=== PATIENT | female | born 1960 | race Two or more races ===

== ENCOUNTER 2021-05-28 15:01 | Inpatient (IN) ==
[2021-05-28] MEDS ORDERED: SODIUM CHLORIDE 0.9% 1,000 ML IV STA (19:24)
[2021-05-28 20:12] LABS: Basophils # 0.1 10*3/uL (0.0-0.2); Basophils % 0.3 % (0.0-0.8); Eosinophils % 0.2 % (0.00-10.9); Hematocrit 38.1 VOL% (35.7-47.0); Hemoglobin 13.1 GM/DL (12.0-16.0); Immature Granulocytes % 5.5 %; Immature Granulocytes Absolute 0.95 #; Lymphocytes # 1.1 10*3/uL (1.4-4.0); Lymphocytes % 6.2 % (21.3-54.2); Mean Corpuscular HGB Conc 34.4 GM/DL (32-36); Mean Corpuscular Volume 87.6 FL (87-102); Mean Platelet Volume 9.5 FL (9.6-12.0); Monocytes % 2.1 % (1.7-12.7); NRBC # 0.03 10*3/uL; Neutrophils % 85.7 % (38.7-73.9); Platelet Count 229 T/CUMM (130-400); Red Blood Count 4.35 MC/CUMM (3.8-5.5); Red Cell Distribution Width 12.4 % (9.3-17.3); White Blood Count 17.2 T/CUMM (4-12)
[2021-05-28] MEDS ORDERED: AZITHROMYCIN INJ 500 MG in SODIUM CHLORIDE 0.9% 250 ML IV STA (20:15)
[2021-05-28 20:17] LABS: ABG Base Excess 2.6 MMOL/L (-2.5-2.5); ABG HCO3 26.4 MMOL/L (20-26); ABG Oxygen Saturation 88.8 % (95-100); ABG PCO2 35.7 MM HG (35-48); ABG PH 7.467 (7.35-7.45); ABG PO2 58.9 MM HG (80-95); ABG TCO2 21.1 MMOL/L (23-27); Allen Test Positive
[2021-05-28 20:28] LABS: Bacteria,Urine Occasional /HPF (Few); Bilirubin,Urine Negative (Negative); Blood, Urine Small mg/dL (Negative); Glucose,Urine (UA) >=500 mg/dL (Negative); Hyaline Casts,Urine 9 /LPF (0-3); Ketones,Urine 20 mg/dL (Negative); Mucus,Urine Occasional /LPF (Occasional); Nitrite,Urine Negative (Negative); Protein,Urine 100 MG/DL; Squamous Epithelial Cell,Urine Occasional /HPF (0-10); Urine Appearance Slightly Hazy (Clear); Urine Color Yellow (Yellow); Urine Specific Gravity 1.024 (1.001-1.035)
[2021-05-28 20:36] LABS: Albumin 2.4 G/DL (3.4-5.0); Bilirubin,Total 1.4 MG/DL (0.20-1.00); Calcium 8.9 MG/DL (8.5-10.1); Osmolality,Calculated 277.8 MOS/KG (273-304); Potassium 3.1 MMOL/L (3.5-5.1); Total Protein 7.7 G/DL (6.4-8.2)
[2021-05-28 20:42] LABS: Lymphocytes 4 % (20-55); Segmented Neutrophils 94 % (50-85); Total Cells Counted 100
[2021-05-28 20:43] LABS: Platelet Estimate Adequate
[2021-05-28] MEDS ORDERED: MELATONIN 3 MG TABLET PO PRN (21:36)
[2021-05-28] MEDS ORDERED: DEXAMETHASONE 10 MG/1 ML VIAL IV STA (21:38)
[2021-05-28] MEDS ORDERED: ENOXAPARIN 30 MG/0.3 ML SYRINGE SUBCUT SCH (22:00)
[2021-05-28] MEDS: ASCORBIC ACID 500 MG TABLET PO SCH (23:11)
[2021-05-28] MEDS: FAMOTIDINE 20 MG TABLET PO SCH (23:11)
[2021-05-29] MEDS ORDERED: ACETAMINOPHEN 325 MG TABLET PO PRN (00:20)
[2021-05-29] MEDS ORDERED: DOCUSATE SODIUM 100 MG CAPSULE PO PRN (00:20)
[2021-05-29] MEDS ORDERED: DEXTROSE 50% 25 GM/50 ML VIAL IV PRN (00:20)
[2021-05-29] MEDS ORDERED: hydrALAZINE 20 MG/1 ML VIAL IV PRN (00:20)
[2021-05-29] MEDS ORDERED: GLUCAGON 1 MG VIAL IM PRN (00:20)
[2021-05-29] MEDS ORDERED: ONDANSETRON 4 MG/2 ML VIAL IV PRN (00:20)
[2021-05-29] MEDS ORDERED: MAGNESIUM SULF RIDER 4 GM/100 ML PREMIX IV PRN (00:23)
[2021-05-29] MEDS ORDERED: MAGNESIUM SULF RIDER 2 GM/50 ML PREMIX IV PRN (00:23)
[2021-05-29] MEDS ORDERED: POTASSIUM CHLORIDE 20 MEQ TABLET PO PRN (00:23)
[2021-05-29] MEDS ORDERED: SODIUM CHLORIDE 0.9% 1,000 ML IV SCH (00:30)
[2021-05-29] MEDS: cefTRIAXone 1,000 MG in SODIUM CHLORIDE 0.9% 100 ML IV SCH ×2 (02:08→12:37)
[2021-05-29] MEDS ORDERED: ENOXAPARIN 80 MG/0.8 ML SYRINGE SUBCUT STA (02:30)
[2021-05-29] MEDS ORDERED: ENOXAPARIN 40 MG/0.4 ML SYRINGE SUBCUT ONE (02:43)
[2021-05-29] MEDS ORDERED: ENOXAPARIN 60 MG/0.6 ML SYRINGE ONE (02:49)
[2021-05-29 05:32] LABS: Basophils # 0.1 10*3/uL (0.0-0.2); Basophils % 0.6 % (0.0-0.8); Eosinophils % 0.1 % (0.00-10.9); Hematocrit 36.6 VOL% (35.7-47.0); Hemoglobin 12.8 GM/DL (12.0-16.0); Immature Granulocytes % 5.8 %; Immature Granulocytes Absolute 0.84 #; Lymphocytes # 0.7 10*3/uL (1.4-4.0); Lymphocytes % 4.7 % (21.3-54.2); Mean Platelet Volume 9.7 FL (9.6-12.0); Neutrophils % 87.8 % (38.7-73.9); Platelet Count 224 T/CUMM (130-400); Red Blood Count 4.16 MC/CUMM (3.8-5.5); Red Cell Distribution Width 12.7 % (9.3-17.3); White Blood Count 14.5 T/CUMM (4-12)
[2021-05-29 05:48] LABS: Calcium 8.5 MG/DL (8.5-10.1); Osmolality,Calculated 290.7 MOS/KG (273-304); Potassium 3.8 MMOL/L (3.5-5.1); Total Protein 7.2 G/DL (6.4-8.2)
[2021-05-29 05:51] LABS: Ferritin 1521.8 ng/ml (8-252)
[2021-05-29 06:49] LABS: Band Neutrophils 2 % (0-10); Lymphocytes 3 % (20-55); Platelet Estimate Normal; Segmented Neutrophils 93 % (50-85); Total Cells Counted 100
[2021-05-29 06:50] LABS: Microcytosis 1+
[2021-05-29 06:51] LABS: Polychromasia Slight
[2021-05-29] MEDS: ALBUTEROL 2.5 MG/3 ML NEB RESP TX SCH (07:55)
[2021-05-29] MEDS ORDERED: REMDESIVIR 200 MG in SODIUM CHLORIDE 0.9% 210 ML IV ONE (09:00)
[2021-05-29] MEDS: ASCORBIC ACID 500 MG TABLET PO SCH ×2 (10:05→20:54)
[2021-05-29] MEDS: AZITHROMYCIN 250 MG TABLET PO SCH (10:05)
[2021-05-29] MEDS: CETIRIZINE 10 MG TABLET PO SCH (10:05)
[2021-05-29] MEDS: DEXAMETHASONE 4 MG/1 ML VIAL IV SCH (10:06)
[2021-05-29] MEDS: ZINC GLUCONATE 50 MG TABLET PO SCH (10:06)
[2021-05-29] MEDS: CHOLECALCIFEROL 1,000 UNIT TABLET PO SCH (10:06)
[2021-05-29] MEDS: FAMOTIDINE 20 MG TABLET PO SCH ×2 (10:06→20:54)
[2021-05-29] MEDS: INSULIN LISPRO 100 UNIT/ML SUBCUT SCH ×3 (11:53→21:00)
[2021-05-29] MEDS: ALBUTEROL INHALER 18 GM INH SCH (20:54)
[2021-05-29] MEDS ORDERED: INSULIN GLARGINE 100 UNIT/ML SUBCUT SCH (21:00)
[2021-05-30] MEDS: ALBUTEROL INHALER 18 GM INH SCH ×4 (01:27→20:56)
[2021-05-30 03:16] LABS: Basophils # 0.1 10*3/uL (0.0-0.2); Basophils % 0.5 % (0.0-0.8); Hematocrit 34.4 VOL% (35.7-47.0); Hemoglobin 11.9 GM/DL (12.0-16.0); Immature Granulocytes % 7.5 %; Immature Granulocytes Absolute 1.18 #; Lymphocytes % 6.3 % (21.3-54.2); Mean Corpuscular HGB Conc 34.6 GM/DL (32-36); Mean Corpuscular Volume 90.1 FL (87-102); Mean Platelet Volume 10.1 FL (9.6-12.0); Monocytes % 3.1 % (1.7-12.7); Neutrophils % 82.6 % (38.7-73.9); Platelet Count 242 T/CUMM (130-400); Red Blood Count 3.82 MC/CUMM (3.8-5.5); White Blood Count 15.7 T/CUMM (4-12)
[2021-05-30 03:45] LABS: Ferritin 1649.8 ng/ml (8-252)
[2021-05-30 04:12] LABS: Alanine Aminotransferase 34 U/L (13-56); Albumin 1.7 G/DL (3.4-5.0); Alkaline Phosphatase 91 U/L (45-117); Aspartate Amino Transferase 35 U/L (0-37); Bilirubin,Total < 0.39 MG/DL (0.20-1.00); Blood Urea Nitrogen 28 MG/DL (7-18); Calcium 8.3 MG/DL (8.5-10.1); Carbon Dioxide 22 MMOL/L (21-32); Estimated Glom Filtration Rate 101 ML/MIN; Glucose 338 MG/DL (74-106); Osmolality,Calculated 297.4 MOS/KG (273-304); Potassium 3.5 MMOL/L (3.5-5.1); Sodium 140 MMOL/L (136-145); Total Protein 6.1 G/DL (6.4-8.2)
[2021-05-30 06:03] LABS: Lymphocytes 4 % (20-55); Segmented Neutrophils 91 % (50-85); Total Cells Counted 100
[2021-05-30 06:22] LABS: Platelet Estimate Adequate
[2021-05-30] MEDS: ZINC GLUCONATE 50 MG TABLET PO SCH (08:43)
[2021-05-30] MEDS: CHOLECALCIFEROL 1,000 UNIT TABLET PO SCH (08:43)
[2021-05-30] MEDS: CETIRIZINE 10 MG TABLET PO SCH (08:43)
[2021-05-30] MEDS: ASCORBIC ACID 500 MG TABLET PO SCH ×2 (08:43→20:52)
[2021-05-30] MEDS: FAMOTIDINE 20 MG TABLET PO SCH ×2 (08:43→20:52)
[2021-05-30] MEDS: AZITHROMYCIN 250 MG TABLET PO SCH (08:43)
[2021-05-30] MEDS: DEXAMETHASONE 4 MG/1 ML VIAL IV SCH (08:44)
[2021-05-30] MEDS: INSULIN LISPRO 100 UNIT/ML SUBCUT SCH ×4 (08:44→20:53)
[2021-05-30] MEDS ORDERED: REMDESIVIR 100 MG in SODIUM CHLORIDE 0.9% 100 ML IV SCH (09:00)
[2021-05-30] MEDS: ALBUTEROL 2.5 MG/3 ML NEB RESP TX SCH (09:08)
[2021-05-30] MEDS: cefTRIAXone 1,000 MG in SODIUM CHLORIDE 0.9% 100 ML IV SCH (12:17)
[2021-05-30] MEDS: RIVAROXABAN 10 MG TABLET PO SCH (20:52)
[2021-05-30] MEDS ORDERED: INSULIN GLARGINE 100 UNIT/ML SUBCUT SCH (21:00)
[2021-05-31] MEDS: ALBUTEROL INHALER 18 GM INH SCH ×4 (00:35→20:47)
[2021-05-31 06:37] LABS: Basophils % 0.3 % (0.0-0.8); Hematocrit 34.9 VOL% (35.7-47.0); Hemoglobin 11.8 GM/DL (12.0-16.0); Immature Granulocytes % 6.9 %; Immature Granulocytes Absolute 0.82 #; Lymphocytes # 0.9 10*3/uL (1.4-4.0); Lymphocytes % 7.3 % (21.3-54.2); Mean Corpuscular HGB Conc 33.8 GM/DL (32-36); Mean Corpuscular Volume 90.2 FL (87-102); Mean Platelet Volume 9.7 FL (9.6-12.0); Monocytes % 3.2 % (1.7-12.7); Neutrophils % 82.3 % (38.7-73.9); Platelet Count 218 T/CUMM (130-400); Red Blood Count 3.87 MC/CUMM (3.8-5.5); White Blood Count 11.9 T/CUMM (4-12)
[2021-05-31 07:02] LABS: Hypochromasia Slight; Lymphocytes 5 % (20-55); Microcytosis Slight; Platelet Estimate Adequate; Segmented Neutrophils 94 % (50-85); Total Cells Counted 100
[2021-05-31 07:13] LABS: Calcium 8.2 MG/DL (8.5-10.1); Ferritin 1339.8 ng/ml (8-252); Osmolality,Calculated 298.3 MOS/KG (273-304); Potassium 3.2 MMOL/L (3.5-5.1)
[2021-05-31] MEDS: CHOLECALCIFEROL 1,000 UNIT TABLET PO SCH (09:57)
[2021-05-31] MEDS: ZINC GLUCONATE 50 MG TABLET PO SCH (09:57)
[2021-05-31] MEDS: AZITHROMYCIN 250 MG TABLET PO SCH (09:57)
[2021-05-31] MEDS: FAMOTIDINE 20 MG TABLET PO SCH ×2 (09:57→20:45)
[2021-05-31] MEDS: DEXAMETHASONE 4 MG/1 ML VIAL IV SCH (09:57)
[2021-05-31] MEDS: CETIRIZINE 10 MG TABLET PO SCH (09:57)
[2021-05-31] MEDS: ASCORBIC ACID 500 MG TABLET PO SCH ×2 (09:57→20:45)
[2021-05-31] MEDS: INSULIN LISPRO 100 UNIT/ML SUBCUT SCH ×4 (09:58→20:46)
[2021-05-31] MEDS: POTASSIUM CHLORIDE 20 MEQ TABLET PO SCH (12:21)
[2021-05-31] MEDS: cefTRIAXone 1,000 MG in SODIUM CHLORIDE 0.9% 100 ML IV SCH (12:22)
[2021-05-31] MEDS: RIVAROXABAN 10 MG TABLET PO SCH (20:45)
[2021-05-31] MEDS: INSULIN GLARGINE 100 UNIT/ML SUBCUT SCH (20:47)
[2021-06-01] MEDS: ALBUTEROL INHALER 18 GM INH SCH ×4 (01:15→21:17)
[2021-06-01 05:33] LABS: Basophils % 0.2 % (0.0-0.8); Eosinophils # 0.1 10*3/uL (0.0-0.87); Eosinophils % 0.5 % (0.00-10.9); Hematocrit 34.6 VOL% (35.7-47.0); Hemoglobin 11.6 GM/DL (12.0-16.0); Immature Granulocytes % 6.1 %; Immature Granulocytes Absolute 0.66 #; Lymphocytes # 1.1 10*3/uL (1.4-4.0); Lymphocytes % 10.2 % (21.3-54.2); Mean Corpuscular HGB Conc 33.5 GM/DL (32-36); Mean Corpuscular Volume 91.5 FL (87-102); Mean Platelet Volume 9.7 FL (9.6-12.0); Monocytes % 4.4 % (1.7-12.7); Neutrophils % 78.6 % (38.7-73.9); Platelet Count 198 T/CUMM (130-400); Red Blood Count 3.78 MC/CUMM (3.8-5.5); Red Cell Distribution Width 13.1 % (9.3-17.3); White Blood Count 10.8 T/CUMM (4-12)
[2021-06-01 05:57] LABS: Band Neutrophils 1 % (0-10); Hypochromasia Slight; Lymphocytes 7 % (20-55); Microcytosis Slight; Platelet Estimate Adequate; Segmented Neutrophils 88 % (50-85); Total Cells Counted 100
[2021-06-01 06:09] LABS: Ferritin 1185.4 ng/ml (8-252); Osmolality,Calculated 283.4 MOS/KG (273-304); Potassium 3.4 MMOL/L (3.5-5.1)
[2021-06-01] MEDS: INSULIN LISPRO 100 UNIT/ML SUBCUT SCH ×4 (09:00→21:13)
[2021-06-01] MEDS: AZITHROMYCIN 250 MG TABLET PO SCH (10:44)
[2021-06-01] MEDS: CHOLECALCIFEROL 1,000 UNIT TABLET PO SCH (10:44)
[2021-06-01] MEDS: ZINC GLUCONATE 50 MG TABLET PO SCH (10:44)
[2021-06-01] MEDS: ASCORBIC ACID 500 MG TABLET PO SCH ×2 (10:44→21:12)
[2021-06-01] MEDS: DEXAMETHASONE 4 MG/1 ML VIAL IV SCH (10:44)
[2021-06-01] MEDS: FAMOTIDINE 20 MG TABLET PO SCH ×2 (10:45→21:13)
[2021-06-01] MEDS: CETIRIZINE 10 MG TABLET PO SCH (10:45)
[2021-06-01] MEDS: POTASSIUM CHLORIDE 20 MEQ TABLET PO SCH (10:45)
[2021-06-01] MEDS: cefTRIAXone 1,000 MG in SODIUM CHLORIDE 0.9% 100 ML IV SCH (13:33)
[2021-06-01] MEDS: RIVAROXABAN 10 MG TABLET PO SCH (21:12)
[2021-06-01] MEDS: INSULIN GLARGINE 100 UNIT/ML SUBCUT SCH (21:13)
[2021-06-02] MEDS: ALBUTEROL INHALER 18 GM INH SCH (03:42)
[2021-06-02 07:16] LABS: Basophils # 0.1 10*3/uL (0.0-0.2); Basophils % 0.5 % (0.0-0.8); Eosinophils # 0.1 10*3/uL (0.0-0.87); Eosinophils % 0.4 % (0.00-10.9); Hemoglobin 12.1 GM/DL (12.0-16.0); Immature Granulocytes % 6.3 %; Immature Granulocytes Absolute 0.73 #; Lymphocytes # 1.3 10*3/uL (1.4-4.0); Lymphocytes % 11.2 % (21.3-54.2); Mean Corpuscular HGB Conc 34.6 GM/DL (32-36); Monocytes % 5.2 % (1.7-12.7); Neutrophils % 76.4 % (38.7-73.9); Platelet Count 191 T/CUMM (130-400); Red Blood Count 3.89 MC/CUMM (3.8-5.5); White Blood Count 11.5 T/CUMM (4-12)
[2021-06-02] MEDS: INSULIN LISPRO 100 UNIT/ML SUBCUT SCH ×4 (07:33→21:19)
[2021-06-02 07:38] LABS: Band Neutrophils 1 % (0-10); Hypochromasia Slight; Lymphocytes 7 % (20-55); Segmented Neutrophils 88 % (50-85); Total Cells Counted 100
[2021-06-02 07:40] LABS: Microcytosis 1+; Platelet Estimate Adequate
[2021-06-02 07:49] LABS: Calcium 8.2 MG/DL (8.5-10.1); Ferritin 1056.9 ng/ml (8-252); Osmolality,Calculated 284.3 MOS/KG (273-304); Potassium 3.8 MMOL/L (3.5-5.1)
[2021-06-02] MEDS: CHOLECALCIFEROL 1,000 UNIT TABLET PO SCH (09:05)
[2021-06-02] MEDS: CETIRIZINE 10 MG TABLET PO SCH (09:05)
[2021-06-02] MEDS: FAMOTIDINE 20 MG TABLET PO SCH ×2 (09:05→21:17)
[2021-06-02] MEDS: DEXAMETHASONE 4 MG/1 ML VIAL IV SCH (09:05)
[2021-06-02] MEDS: POTASSIUM CHLORIDE 20 MEQ TABLET PO SCH (09:05)
[2021-06-02] MEDS: ASCORBIC ACID 500 MG TABLET PO SCH ×2 (09:05→21:17)
[2021-06-02] MEDS: ZINC GLUCONATE 50 MG TABLET PO SCH (09:06)
[2021-06-02] MEDS: cefTRIAXone 1,000 MG in SODIUM CHLORIDE 0.9% 100 ML IV SCH (12:27)
[2021-06-02] MEDS: ALBUTEROL 2.5 MG/3 ML NEB RESP TX SCH ×2 (13:32→20:15)
[2021-06-02] MEDS: RIVAROXABAN 10 MG TABLET PO SCH (21:17)
[2021-06-02] MEDS: INSULIN GLARGINE 100 UNIT/ML SUBCUT SCH (21:20)
[2021-06-03] MEDS: ALBUTEROL 2.5 MG/3 ML NEB RESP TX SCH ×4 (00:35→19:30)
[2021-06-03 05:46] LABS: Basophils # 0.1 10*3/uL (0.0-0.2); Basophils % 0.5 % (0.0-0.8); Eosinophils # 0.1 10*3/uL (0.0-0.87); Eosinophils % 0.7 % (0.00-10.9); Hematocrit 36.6 VOL% (35.7-47.0); Hemoglobin 12.3 GM/DL (12.0-16.0); Immature Granulocytes % 5.2 %; Immature Granulocytes Absolute 0.71 #; Lymphocytes # 1.8 10*3/uL (1.4-4.0); Lymphocytes % 13.3 % (21.3-54.2); Mean Corpuscular HGB Conc 33.6 GM/DL (32-36); Mean Platelet Volume 9.9 FL (9.6-12.0); Monocytes % 6.1 % (1.7-12.7); Neutrophils % 74.2 % (38.7-73.9); Platelet Count 207 T/CUMM (130-400); Red Blood Count 4.02 MC/CUMM (3.8-5.5); Red Cell Distribution Width 13.2 % (9.3-17.3); White Blood Count 13.6 T/CUMM (4-12)
[2021-06-03 06:09] LABS: Lymphocytes 11 % (20-55); Platelet Estimate Adequate; Segmented Neutrophils 83 % (50-85); Total Cells Counted 100
[2021-06-03 06:10] LABS: Hypochromasia Slight; Microcytosis Slight
[2021-06-03 06:19] LABS: Calcium 8.4 MG/DL (8.5-10.1); Ferritin 983.5 ng/ml (8-252); Osmolality,Calculated 283.3 MOS/KG (273-304); Potassium 3.9 MMOL/L (3.5-5.1)
[2021-06-03] MEDS: INSULIN LISPRO 100 UNIT/ML SUBCUT SCH ×4 (08:27→20:45)
[2021-06-03] MEDS: CHOLECALCIFEROL 1,000 UNIT TABLET PO SCH (08:30)
[2021-06-03] MEDS: ZINC GLUCONATE 50 MG TABLET PO SCH (08:30)
[2021-06-03] MEDS: ASCORBIC ACID 500 MG TABLET PO SCH ×2 (08:30→20:42)
[2021-06-03] MEDS: POTASSIUM CHLORIDE 20 MEQ TABLET PO SCH (08:30)
[2021-06-03] MEDS: FAMOTIDINE 20 MG TABLET PO SCH ×2 (08:30→20:42)
[2021-06-03] MEDS: CETIRIZINE 10 MG TABLET PO SCH (08:30)
[2021-06-03] MEDS: DEXAMETHASONE 4 MG/1 ML VIAL IV SCH (08:31)
[2021-06-03] MEDS: cefTRIAXone 1,000 MG in SODIUM CHLORIDE 0.9% 100 ML IV SCH (12:55)
[2021-06-03] MEDS: RIVAROXABAN 10 MG TABLET PO SCH (20:42)
[2021-06-03] MEDS: INSULIN GLARGINE 100 UNIT/ML SUBCUT SCH (20:44)
[2021-06-04] MEDS: ALBUTEROL 2.5 MG/3 ML NEB RESP TX SCH ×4 (00:01→19:10)
[2021-06-04 06:18] LABS: Basophils % 0.3 % (0.0-0.8); Eosinophils # 0.1 10*3/uL (0.0-0.87); Eosinophils % 0.6 % (0.00-10.9); Hematocrit 35.3 VOL% (35.7-47.0); Hemoglobin 11.6 GM/DL (12.0-16.0); Immature Granulocytes % 4.6 %; Lymphocytes # 1.4 10*3/uL (1.4-4.0); Lymphocytes % 13.1 % (21.3-54.2); Mean Corpuscular HGB Conc 32.9 GM/DL (32-36); Mean Corpuscular Volume 92.4 FL (87-102); Mean Platelet Volume 9.9 FL (9.6-12.0); Monocytes % 7.7 % (1.7-12.7); Neutrophils % 73.7 % (38.7-73.9); Platelet Count 225 T/CUMM (130-400); Red Blood Count 3.82 MC/CUMM (3.8-5.5); Red Cell Distribution Width 13.4 % (9.3-17.3); White Blood Count 10.9 T/CUMM (4-12)
[2021-06-04 07:07] LABS: Calcium 8.6 MG/DL (8.5-10.1); Osmolality,Calculated 280.8 MOS/KG (273-304); Potassium 4.4 MMOL/L (3.5-5.1)
[2021-06-04 07:25] LABS: Ferritin 890.3 ng/ml (8-252)
[2021-06-04] MEDS: POTASSIUM CHLORIDE 20 MEQ TABLET PO SCH (09:00)
[2021-06-04] MEDS: ASCORBIC ACID 500 MG TABLET PO SCH ×2 (09:00→20:45)
[2021-06-04] MEDS: FAMOTIDINE 20 MG TABLET PO SCH ×2 (09:00→20:45)
[2021-06-04] MEDS: CHOLECALCIFEROL 1,000 UNIT TABLET PO SCH (09:00)
[2021-06-04] MEDS: ZINC GLUCONATE 50 MG TABLET PO SCH (09:00)
[2021-06-04] MEDS: INSULIN LISPRO 100 UNIT/ML SUBCUT SCH ×4 (09:00→20:48)
[2021-06-04] MEDS: CETIRIZINE 10 MG TABLET PO SCH (09:00)
[2021-06-04] MEDS: cefTRIAXone 1,000 MG in SODIUM CHLORIDE 0.9% 100 ML IV SCH (09:01)
[2021-06-04] MEDS: DEXAMETHASONE 4 MG/1 ML VIAL IV SCH (09:01)
[2021-06-04] MEDS: RIVAROXABAN 10 MG TABLET PO SCH (20:45)
[2021-06-04] MEDS: INSULIN GLARGINE 100 UNIT/ML SUBCUT SCH (21:30)
[2021-06-05] MEDS: ALBUTEROL 2.5 MG/3 ML NEB RESP TX SCH ×3 (00:45→13:31)
[2021-06-05 05:35] LABS: Basophils % 0.2 % (0.0-0.8); Eosinophils # 0.1 10*3/uL (0.0-0.87); Eosinophils % 0.6 % (0.00-10.9); Hematocrit 36.4 VOL% (35.7-47.0); Immature Granulocytes % 3.7 %; Lymphocytes # 1.5 10*3/uL (1.4-4.0); Mean Corpuscular Volume 92.9 FL (87-102); Mean Platelet Volume 9.9 FL (9.6-12.0); Monocytes % 8.1 % (1.7-12.7); Neutrophils % 73.4 % (38.7-73.9); Platelet Count 237 T/CUMM (130-400); Red Blood Count 3.92 MC/CUMM (3.8-5.5); Red Cell Distribution Width 13.3 % (9.3-17.3); White Blood Count 10.7 T/CUMM (4-12)
[2021-06-05 05:58] LABS: Calcium 8.6 MG/DL (8.5-10.1); Ferritin 891.6 ng/ml (8-252); Osmolality,Calculated 282.4 MOS/KG (273-304); Potassium 4.1 MMOL/L (3.5-5.1)
[2021-06-05] MEDS: INSULIN LISPRO 100 UNIT/ML SUBCUT SCH ×2 (07:36→12:42)
[2021-06-05] MEDS: FAMOTIDINE 20 MG TABLET PO SCH (08:52)
[2021-06-05] MEDS: POTASSIUM CHLORIDE 20 MEQ TABLET PO SCH (08:52)
[2021-06-05] MEDS: ASCORBIC ACID 500 MG TABLET PO SCH (08:52)
[2021-06-05] MEDS: ZINC GLUCONATE 50 MG TABLET PO SCH (08:52)
[2021-06-05] MEDS: CETIRIZINE 10 MG TABLET PO SCH (08:52)
[2021-06-05] MEDS: CHOLECALCIFEROL 1,000 UNIT TABLET PO SCH (08:52)
[2021-06-05] MEDS: cefTRIAXone 1,000 MG in SODIUM CHLORIDE 0.9% 100 ML IV SCH (08:53)
[2021-06-05] MEDS: DEXAMETHASONE 4 MG/1 ML VIAL IV SCH (08:53)
[2021-06-05 15:56] VITALS: BP 132/81
== END 2021-06-05 17:30 | disposition home or self-care (01) | DRG 177 ==
LOC: N.ED 15:01 → N.EDINP 21:18 → SUATTDRO 21:18 → N.2E 05-29 04:09 → N.5E 05-30 13:29
PROVIDERS: ADMIT Phlebology; ATTEND Hospitalist